=== PATIENT | male | born 1995 | race Hispanic/Latino ===

== ENCOUNTER 2021-12-30 08:23 | Emergency (ER) | payer SELFPAY ==
[~2021-12-30] VITALS: Ht 180.3 cm; Wt 103.0 kg
[2021-12-30 08:39] VITALS: BP 127/89
[2021-12-30 08:46] VITALS: BP 145/88
[2021-12-30] MEDS ORDERED: VOLTAREN1%GEL TOP (12:52)
[2021-12-30 13:01] VITALS: BP 145/88
== END 2021-12-30 13:15 | disposition home or self-care (01) | DRG 556 ==
LOC: ED 08:23
DX: M25.562 Pain in left knee (principal)

== ENCOUNTER 2022-03-11 00:17 | Emergency (ER) | payer SELFPAY ==
[~2022-03-11] VITALS: Ht 180.3 cm; Wt 77.0 kg
[~2022-03-11 00:17] MED LIST: VOLTAREN1%GEL TOP
[2022-03-11 00:43] LABS: HEMATOCRIT 38.8 % (39.0-50.0); IMMATURE GRANULOCYTES 0.2 % (0.0-5.0); MEAN CELL VOLUME 86.4 fL CALC (80.0-100.0); MEAN CORPUSCULAR HGB CONC 33.5 g/dL CAL (32.0-36.0); NEUT# 11.11 thou/uL (1.82-7.42); RED BLOOD COUNT 4.49 mill/uL (4.70-6.10); RED CELL DISTRI WIDTH 12.6 % (11.5-15.5)
[2022-03-11 01:04] LABS: ALBUMIN 3.9 g/dL (3.2-5.0); ALKALINE PHOSPHATASE 70 u/l (38-126); AMYLASE 48 u/l (30-110); ANION GAP 12 (6-22 (CALC)); BILIRUBIN, TOTAL 0.3 mg/dL (0.0-1.4); BUN 5 mg/dL (9-20); BUN/CREATININE RATIO 7 (12-20 (CALC)); CARBON DIOXIDE 27 mmol/l (22-30); CHLORIDE 100 mmol/l (95-108); CREATININE 0.8 mg/dL (0.7-1.3); GFR > 60 ML/MIN (>=60 (CALC)); GFR FOR AFR.AMER. > 60 ML/MIN (>=60 (CALC)); LIPASE 47 u/l (23-300); POTASSIUM 3.8 mmol/l (3.5-5.1); SGOT/AST 20 u/l (17-59); SODIUM 135 mmol/l (137-146); TOTAL PROTEIN 6.6 g/dL (6.3-8.2)
[2022-03-11 01:09] LABS: URINE BILIRUBIN - DIPSTICK NEGATIVE (NEGATIVE); URINE BLOOD DIPSTICK NEGATIVE (NEGATIVE); URINE COLOR YELLOW; URINE GLUCOSE - DIPSTICK NEGATIVE (NEGATIVE); URINE KETONE TRACE mg/dL (NEGATIVE); URINE LEUK ESTERASE NEGATIVE (NEGATIVE); URINE PROTEIN - DIPSTICK NEGATIVE (NEG-TRACE); URINE UROBILINOGEN - DIPSTICK 0.2 E.U./dL (0.2)
[2022-03-11 01:16] LABS: MYOGLOBIN 24 ng/mL (0 - 121)
[2022-03-11 01:16] LABS: URINE NITRITE - DIPSTICK NEGATIVE (Negative)
[2022-03-11 02:24] VITALS: BP 116/64
== END 2022-03-11 02:53 | disposition home or self-care (01) | DRG 897 ==
LOC: ED 00:17
PROVIDERS: Emergency Medicine
DX: F10.10 Alcohol abuse, uncomplicated (principal); F19.10 Other psychoactive substance abuse, uncomplicated; F17.200 Nicotine dependence, unspecified, uncomplicated
CPT/HCPCS: S0164